=== PATIENT | male | born 2000 | race Caucasian/White ===

== ENCOUNTER 2023-04-04 11:23 | Outpatient (CLI) | payer OTHER, SELFPAY ==
[2023-04-04 14:55] LABS: Kit Draw Collected
== END 2023-04-04 11:24 | disposition home or self-care (01) ==
LOC: ANHGOSHLAB 11:25
PROVIDERS: PCP Nurse Practitioner Family; Visit Provider Nurse Practitioner Family
DX: J35.1 Hypertrophy of tonsils (principal); J02.9 Acute pharyngitis, unspecified
CPT/HCPCS: 36415

== ENCOUNTER 2025-02-15 14:35 | Outpatient (RCR) | payer OTHER, SELFPAY ==
--- NOTE | 2025-02-15 15:29 | OPREHPOC ---
Outpatient Therapy Plan of Care This is a Multidisciplinary Plan of Care that may contain components documented by all disciplines (PT, OT, and ST.) PT Problem 1 PT Problem #1 Knowledge Deficit PT Goal 1 Goal / Goal Update independent and compliant with HEP Target Visit 4 PT Problem 2 PT Problem #2 Pain PT Goal 1 Goal / Goal Update maintain no pain in the R elbow Target Visit 8 PT Problem 3 PT Problem #3 Impaired Strength PT Goal 1 Goal / Goal Update 5/5 R elbow strength 5/5 R shoulder strength 5/5 R wrist strength Target Visit 8 PT Problem 4 PT Problem #4 Impaired Range of Motion PT Goal 1 Goal / Goal Update 0 degrees or better active R elbow extension 145 degrees or better active R elbow flexion Target Visit 8 PT Problem 5 PT Problem #5 Impaired Functional Mobility PT Goal 1 Goal / Goal Update patient to return to recreational sports pain patient to lift 50lbs from floor to shoulder level shelf without pain Target Visit 8
--- NOTE | 2025-02-15 15:29 | PTOPEVAL1 ---
Assessment and note entered by [employer], PT Evaluation Information Assessment Status Evaluation ICD-10 Condition Codes (PT) Pain in right elbow M25.521 Onset 02/14/25 Subjective Information patient reports he fractured the radial head back in December while playing softball. he was in a brace for 4 weeks post injury. he was having difficulty bending the elbow initially, but is now improving. he reports he has the most difficulty with lifting anything heavy. he reports the arm feels weaker now than the L side. Reported Pain Level Pain Score 0: Self Report Assessment PT Clinical Summary ana maría ornelas is a 24 yo man who presents to skilled PT services for evaluation and treatment of R elbow tightness and R UE weakness following radial head fracture and bracing. he presents with deficits in rom, strength, and functional activity performance/use. continued skilled PT is indicated to improve his objective/functional deficits and return to full prior level functional activity performance/quality of life. Plan of Care Interventions Manual Therapy,Neuro Re-education,Patient/ Caregiver Education,Therapeutic Activities, Therapeutic Exercise PT Services Indicated Yes Treatment Frequency and 2x weekly for 8 visits Duration These treatments will address the objective and functional deficits as defined above. The patient will be advanced safely and appropriately in order for the patient to progress towards his/her prior level of function. Additional exercises will be introduced and as well as a comprehensive home exercise program upon discharge, if needed, ?to ensure carryover of functional gains achieved in the clinic. This treatment plan has been reviewed and agreement upon by the patient.
--- NOTE | 2025-02-22 17:10 | PCPTNOTE ---
Patient called & cancelled scheduled appointment this date due to mom saying he will not make it.
--- NOTE | 2025-02-22 17:11 | PCPTNOTE ---
Patient called & cancelled scheduled appointment this date due to mom cancelling.
--- NOTE | 2025-04-04 07:54 | PCPTNOTE ---
Mr. Monsalve attended a skilled PT evaluation for R elbow pain on 02/15/2025 and he has not returned to therapy since. He was contacted by the clinic via phone and per discussion with pt's mother he did not have any pain following eval and he is agreeable to discharge from PT. Chiquis Ling, DPT 04/04/2025
== END 2025-02-15 15:35 | disposition home or self-care (01) ==
LOC: CHSPT 14:35
PROVIDERS: Visit Provider Physician Assistant
DX: S52.124D Nondisplaced fracture of head of right radius, subsequent encounter for closed fracture with routine healing (principal); M25.621 Stiffness of right elbow, not elsewhere classified
CPT/HCPCS: 97110; 97161